=== PATIENT | male | born 1935 | race Caucasian/White ===

== ENCOUNTER 2016-12-18 14:59 | Inpatient (IN) | payer OTHER ==
--- NOTE | ~2016-12-18 | CN ---
Consultation Report [facility] [address] [facility] [place]. [address] NAME: DOT SANCHEZ : 33 STATUS : ADM Radha PAT#: [id number] AGE: 81 ADM/REG DATE : 12/18/16 MR#: [id number] REPORT SERV DATE: 12/19/16 DICTATED BY: WALE WAHL DATE: 12/19/16 REPORT STATUS : Draft TRANSCRIBED BY: MODL DATE: 12/19/16 DATE OF CONSULTATION: HISTORY OF PRESENT ILLNESS: This is an 81-year-old man, whom I am asked to see as an unattached GI consult for severe constipation. Unfortunately, he is suffering from advanced dementia and is unable to give a history. I did phone his , Felicia, who was able to tell me that he has been constipated his entire life and that he had used laxatives his entire life. With his worsening dementia, however, he has been on no bowel regimen at all and has had constipation with periods of liquid stool that sound like overflow. He became severely distended, complaining of pain, constipated, and developed urinary retention. He presented to the emergency room where there was evidence of a lot of stool in the rectum and marked dilation. He was admitted and I was consulted. He has not yet been digitally disimpacted. PAST MEDICAL HISTORY: 1. Advanced dementia. 2. Chronic constipation. 3. CVA in 2012. PAST SURGICAL HISTORY: No abdominal surgery. MEDICATIONS: (On admission), Xalatan eyedrops, Namenda, Remeron, Pravachol, Altace, Exelon. ALLERGIES: NO KNOWN DRUG ALLERGIES. FAMILY HISTORY: No GI malignancy. SOCIAL HISTORY: He is . He and his , Felicia, both ends with two glasses of wine each evening. Her home phone is [phone]. REVIEW OF SYSTEMS: Otherwise unremarkable for constitutional, endocrine, neurologic, psychiatric, ocular, ENT, pulmonary, cardiovascular, GI, , or rheumatologic symptoms except for as noted above. PHYSICAL EXAMINATION: GENERAL: He is very calm and in bed, but not able to give a history. VITAL SIGNS: Afebrile. LUNGS: Clear. ABDOMEN: Actually soft and not distended or tender. EXTREMITIES: No edema. RECTAL: He has a marked fecal impaction. Copious hard stool was disimpacted and removed. The remainder of the stool that could not be digitally removed was broken up and turned into a soft mush to facilitate spontaneous passage. LABORATORY DATA: Potassium 3.5, white count 11.2, hemoglobin 13. Albumin normal. Liver Consultation Report [facility] [address] [address] NAME: DOT SANCHEZ : 33 STATUS : ADM Radha PAT#: [id number] AGE: 81 ADM/REG DATE : 12/18/16 MR#: [id number] REPORT SERV DATE: 12/19/16 DICTATED BY: WALE WAHL DATE: 12/19/16 REPORT STATUS : Draft TRANSCRIBED BY: MODL DATE: 12/19/16 tests normal. Lipase normal. Noncontrast CT scan consistent with rectal fecal impaction with secondary dilation. IMPRESSION: 1. Chronic constipation with exacerbation by dementia and medications for dementia. 2. Acute rectal fecal impaction with overflow. 3. Urinary retention due to fecal impaction, but probably also component of benign prostatic hyperplasia. RECOMMENDATIONS: 1. I have now manually disimpacted him. 2. We will give soapsuds enemas. 3. Start oral magnesium citrate. 4. Repeat manual disimpaction and soapsuds enema in the morning. 5. He will then need a bowel regimen of MiraLAX once to twice daily. 6. Would check a TSH. /MODL Wale Wahl M.D. / [id number] CC: Corie Call M.D.
--- NOTE | ~2016-12-18 | DS ---
Discharge Summary [facility] [address] [place]. [address] NAME: DOT GAMBINO : 31 STATUS : DIS IN PAT#: [id number] AGE: 81 ADM/REG DATE : 12/18/16 MR#: [id number] REPORT SERV DATE: 12/22/16 DICTATED BY: ROSARIO MA DATE: 12/22/16 REPORT STATUS : Draft TRANSCRIBED BY: LYDIA DATE: 12/22/16 ADMISSION DATE: 12/18/2016 DISCHARGE DATE: DIAGNOSES: 1. Severe obstipation requiring disimpaction. 2. Urinary retention secondary to severe obstipation, resolved. 3. Dementia. 4. Hypertension. FOLLOWUP: The patient should follow up with his primary care physician in one to two weeks after rehab. HOSPITALIST: Dr. Miladys Haas. CONSULT: Dr. Wale Wahl, GI. HOSPITAL COURSE: Please see H and P dictated by Dr. Haas. This is an 81-year-old male with a past medical history of a CVA in 2002 as well as advanced dementia, also with intermittent constipation, now presented with severe constipation as well as findings of urinary retention upon arrival to the ER. The patient was seen by Dr. Haas, who initially cared for the patient and consulted GI physician, Dr. Wahl, who disimpacted Mr. Gambino and placed the patient on MiraLAX b.i.d. Also, the patient had a good bowel movement after disimpaction and also after magnesium titrate dosage, he remained afebrile and hemodynamically stable. He did have a CT of the abdomen and pelvis on admission that ruled out any obstructions, the only findings of impaction. The was concerned about the patient returning to home even with home health. States that she needs help with caring for him until the patient restrengthens himself for the next few days or weeks, therefore she requested inpatient rehab. The patient was approved for inpatient rehab at [facility]. He remains clinically and hemodynamically stable. understands that the patient's constipation is most likely secondary to some of his dementia medications and his immobility. The patient was discharged to SNF in stable condition to follow up as an outpatient with his primary care physician. DISCHARGE MEDICATIONS: 1. Norvasc 5 mg p.o. daily. Hold for systolic blood pressure less than 120. 2. Latanoprost ophthalmic drop q.h.s. 3. Magnesium titrate one bottle p.o. x1 only one dose. 4. Remeron 15 mg p.o. q.h.s. 5. Namenda 10 mg p.o. b.i.d. 6. MiraLAX one pack p.o. b.i.d. 7. Pravachol 40 mg p.o. q.h.s. 8. Ramipril 2.5 mg p.o. daily. 9. Exelon 9.5 mg topically patch q.h.s. 10.Flomax 0.4 mg p.o. q.h.s. Discharge Summary [address] [address] NAME: DOT GAMBINO : 33 STATUS : DIS IN PAT#: [id number] AGE: 81 ADM/REG DATE : 12/18/16 MR#: [id number] REPORT SERV DATE: 12/22/16 DICTATED BY: ROSARIO MA DATE: 12/22/16 REPORT STATUS : Draft TRANSCRIBED BY: LYDIA DATE: 12/22/16 DICTATED BY: Rosairo Ma M.D. BANNER/LYDIA Rosario Ma M.D. / [id number] CC: Corie Sagastume M.D.
--- NOTE | ~2016-12-18 | HP ---
History And Physical [place] [id number] [facility] [place]. [address] NAME: DOT SANCHEZ : 33 STATUS : REG ER PAT#: [id number] AGE: 81 ADM/REG DATE : 12/18/16 MR#: [id number] REPORT SERV DATE: 12/18/16 DICTATED BY: CAITLYN SINHA DATE: 12/18/16 REPORT STATUS : Draft TRANSCRIBED BY: MODL DATE: 12/18/16 DATE OF ADMISSION: 12/18/2016 The patient is a very pleasant 81-year-old male who presented to [facility] accompanied with his . The patient has advanced dementia and his noticed that the patient had constipation. In July, she took him to [facility] because of constipation and at that time, he did not have any blockages. His constipation resolved. Recently she noticed that the patient had constipation and then after constipation will get a little bit better, she will develop loose stool, it is not complete diarrhea but he is having 4 to 5 loose stools a day and he did not have complete emptying. His abdomen is swollen although he denies any abdominal pain. He denies any abdominal discomfort. He also had urinary retention, according to Dr. Cartagena, emergency room physician. In the emergency room, Julien catheter was placed and almost 800 mL of urine immediately came out on the Julien catheter. Bladder scan also showed distended urinary bladder as well as the distention on the belly according to the was significant but the patient denied any discomfort although reported that he could not urinate for several days. The patient denies any chest pain, no shortness of breath. No abdominal pain. No fever. No rash. No headaches. The patient does not know what year it is. He does not know that he is at [facility]. He thinks he is in [place] but cannot tell where exactly he is. The patient's reported he has significantly advanced dementia and he is able to walk but with some difficulty with her help. PAST MEDICAL HISTORY: Known for small stroke in 2012, advanced dementia. No diabetes. No heart attacks. No congestive heart failure. His said that he does not have any major surgeries. ALLERGIES: NO KNOWN DRUG ALLERGIES. SOCIAL HISTORY: The patient lives with his and their 50-year-old daughter. The patient does not smoke. He drinks 2 glasses of wine daily according to , they both drink 2 glasses of wine. They denied any recreational drugs. FAMILY HISTORY: Both parents of old age. Mother had diabetes and father of leukemia of old age. HOME MEDICATIONS: Home medications include 1. Xalatan eyedrops at bedtime. 2. Namenda XR 21 mg a day. 3. Remeron 15 mg a day. 4. Pravastatin 40 mg a day. 5. Altace 2.5 mg a day. 6. Exelon patch 9.5 mg topically daily. REVIEW OF SYSTEMS: All 14-point review of systems done and negative except what is stated in the history of present illness. History And Physical [address] [address] NAME: DOT SANCHEZ : 33 STATUS : REG ER PAT#: [id number] AGE: 81 ADM/REG DATE : 12/18/16 MR#: [id number] REPORT SERV DATE: 12/18/16 DICTATED BY: CAITLYN SINHA DATE: 12/18/16 REPORT STATUS : Draft TRANSCRIBED BY: LYDIA DATE: 12/18/16 PHYSICAL EXAMINATION: GENERAL: A well-nourished, well-developed male, not in acute distress. Resting quietly. VITAL SIGNS: Blood pressure 146/68, temperature 98, heart rate 66, respirations 16, and oxygen saturation 97% on room air. HEENT: Head atraumatic, normocephalic. Conjunctivae clear. Pupils are equal and reactive to light and accommodation. Extraocular muscles are intact. NECK: Supple. Trachea is midline. No supraclavicular or cervical lymphadenopathy. LUNGS: Clear to auscultation bilaterally. Normal respiratory effort. CARDIOVASCULAR SYSTEM: Regular rate and rhythm. Point of maximal impulse not displaced. ABDOMEN: Abdomen is soft. Mild distention of the abdomen. No organomegaly. Slightly diminished bowel sounds. EXTREMITIES: No clubbing, cyanosis, or edema. PSYCHIATRIC: Normal mood and affect. NEUROLOGIC: He is awake. He is alert. He is disoriented in time and place, oriented in person. MUSCULOSKELETAL: Muscle strength is 5/5 bilaterally on the upper and lower extremities. LABORATORY RESULTS: Sodium 146, potassium 4.2, chloride 112, carbon dioxide 28, BUN 15, creatinine 1.14, blood sugar 114, ALT 14, AST 13 lipase 117, and bilirubin 0.9. White count 9, hemoglobin 13.4, hematocrit 40.9, and platelet count 97. UA did not show any evidence of urinary infection. CT of the abdomen and pelvis without contrast showed markedly distended rectum approximately 11 cm in diameter and filled with hard stool. Prostate is not severely enlarged. Changes of the pulmonary bases possibly secondary to mild congestive heart failure. Moderate-size hiatal hernia, contains approximately half of the gastric fundus. EKG: EKG showed normal sinus rhythm with a rate of 61. ASSESSMENT AND PLAN: 1. This is an 81-year-old male with advanced dementia, presented with severe constipation, markedly dilated rectum, periodically loose stool, probably from overflow incontinence. 2. Urinary retention likely secondary to BPH. 3. Advanced dementia. 4. Mild prerenal azotemia. PLAN: 1. For his constipation, we will give him laxatives with MiraLAX and Dulcolax suppository and we will monitor him closely. We will put him on gentle IV fluid hydration. We will check his TSH. Also I will consult Gastroenterology office correspondent for possible obstruction. 2. Urinary retention, likely enlarged prostate. We will put the patient on Flomax. Julien catheter was already placed in the emergency room. 3. Advanced Alzheimer's dementia. We will put the patient on fall precautions and aspiration precautions. 4. Also thrombocytopenia noticed of platelet count of 97,000. I noticed that this is History And Physical [address] [address] NAME: DOT SANCHEZ : 33 STATUS : REG ER PAT#: [id number] AGE: 81 ADM/REG DATE : 12/18/16 MR#: [id number] REPORT SERV DATE: 12/18/16 DICTATED BY: CAITLYN SINHA DATE: 12/18/16 REPORT STATUS : Draft TRANSCRIBED BY: MODL DATE: 12/18/16 chronic in nature. On 12/05/2015, a year ago, it was 99,000. We will monitor it closely. We will hold will hold pharmacologic DVT prophylaxis because of the thrombocytopenia. Everything was discussed with the patient and his . MG/MODL Caitlyn Sinha M.D. / [id number] CC: Shahid Davison M.D.
[2016-12-18 13:19] LABS: BASOPHILS 0.4 %; BASOPHILS ABSOLUTE 0.04 10/3/uL (0.0-0.16); EOSINOPHILS 3.1 %; EOSINOPHILS ABSOLUTE 0.28 10/3/uL (0.0-0.53); HEMATOCRIT 40.9 % (40.0-51.0); HEMOGLOBIN 13.4 g/dL (13.6-17.8); IMMATURE GRANULOCYTES 0.2 %; IMMATURE GRANULOCYTES ABSOLUTE 0.02 10/3/uL (0.0-0.11); LYMPHOCYTES 21.2 %; MEAN CORPUS HGB CONC 32.8 g/dL (32.0-36.0); MEAN CORPUSCULAR HEMOGLOB 30.7 pg (26.0-34.0); MEAN CORPUSCULAR VOLUME 93.8 fL (80-100); MONOCYTES 7.9 %; MONOCYTES ABSOLUTE 0.71 10/3/uL (0.21-1.20); NEUTROPHILS 67.2 %; NEUTROPHILS ABSOLUTE 6.02 10/3/uL (2.02-8.40); PLATELET COUNT 97 10/3/uL (150-400); RBC DISTRIBUTION WIDTH 14.2 % (12.0-16.0); RED CELL COUNT 4.36 10/6/uL (4.7-6.1)
[2016-12-18 13:21] LABS: MANUAL DIFF NO %
[2016-12-18 13:33] LABS: A/G RATIO 0.9 (0.7-1.9); ALBUMIN 3.6 G/DL (3.5-5.0); ALKALINE PHOSPHATASE 79 U/L (45-117); BUN (BLOOD UREA NITROGEN) 15 MG/DL (6-23); CALCIUM, SERUM 8.9 MG/DL (8.5-10.4); CHLORIDE, SERUM 112 MMOL/L (96-112); CO2 (CARBON DIOXIDE) 28 MMOL/L (24-34); CREATININE 1.14 MG/DL (0.70-1.30); GFR AFRICAN AMERICAN 69 ML/MIN (>=60); GFR NON AFRICAN AMERICAN 59 ML/MIN (>=60); GLOBULIN 3.8 G/DL (2.5-4.1); GLUCOSE, SERUM 114 MG/DL (60-99); POTASSIUM, SERUM 4.2 MMOL/L (3.5-5.3); SGOT(AST) 13 U/L (5-40); SGPT(ALT) 14 U/L (5-65); SODIUM, SERUM 146 MMOL/L (135-148); TOTAL BILIRUBIN 0.9 MG/DL (0-1.2); TOTAL PROTEIN 7.4 G/DL (6.0-8.5)
[2016-12-18 13:44] LABS: BAND NEUTROPHILS 3 %; EOSINOPHILS 3 %; EOSINOPHILS ABSOLUTE (CALC) 0.27 10/3/uL (0.0-0.53); ER DIFF TAT 0 Hrs 31 Mins; LYMPHOCYTES 28 %; LYMPHOCYTES ABSOLUTE (CALC) 2.52 10/3/uL (0.67-4.30); MONOCYTES 8 %; MONOCYTES ABSOLUTE (CALC) 0.72 10/3/uL (0.21-1.20); NEUTROPHILS ABSOLUTE (CALC) 5.49 10/3/uL (2.02-8.40); PLATELET ESTIMATE DEC (ADEQUATE); RBC MORPHOLOGY NORM (NORMAL); SEGMENTED NEUTROPHIL (0) 58 %; TOTAL NUCLEATED CELLS 100
[2016-12-18 14:21] LABS: WBC (NOT ORDERED) (RFLEX) 0 (0-5)
[2016-12-18 14:28] LABS: ASCORBIC ACID (UR NOT ORDER) NEG (NEG); BILIRUBIN, URINE NEGATIVE (NEG); ER URINALYSIS TAT 0 Hrs 08 Mins; KETONE, URINE NEGATIVE (NEG); LEUKOCYTE ESTERASE(NOT OR NEG (NEG); NITRITE (URINE) NEG (NEG)
[~2016-12-18 14:59] MED LIST: ALTA5 PO; ASA5GR PO; FISH-EPA1000 MG PO; LIPITOR40 PO; MANGANESE PO; VITAMIN C COMPLEX; VITAMIN D31000 UNIT PO
[2016-12-18] MEDS ORDERED: EXELON9.5T TOP (15:30)
[2016-12-18] MEDS ORDERED: ALTA2.5 PO (15:31)
[2016-12-18] MEDS ORDERED: NAMENXR21 PO (15:31)
[2016-12-18] MEDS ORDERED: REM15 PO (15:32)
[2016-12-18] MEDS ORDERED: PRAVACHOL40 MG PO (15:32)
[2016-12-18] MEDS ORDERED: XALAT OPH (15:33)
[2016-12-18 20:17] LABS: FOLATE 10.2 NG/ML (>5.2)
[2016-12-19 04:30] LABS: BASOPHILS 0.3 %; BASOPHILS ABSOLUTE 0.03 10/3/uL (0.0-0.16); EOSINOPHILS 2.8 %; EOSINOPHILS ABSOLUTE 0.31 10/3/uL (0.0-0.53); HEMATOCRIT 38.9 % (40.0-51.0); IMMATURE GRANULOCYTES 0.3 %; IMMATURE GRANULOCYTES ABSOLUTE 0.03 10/3/uL (0.0-0.11); LYMPHOCYTES 16.6 %; LYMPHOCYTES ABSOLUTE 1.86 10/3/uL (0.67-4.30); MEAN CORPUS HGB CONC 33.4 g/dL (32.0-36.0); MEAN CORPUSCULAR HEMOGLOB 31.1 pg (26.0-34.0); MEAN CORPUSCULAR VOLUME 93.1 fL (80-100); MONOCYTES 8.5 %; MONOCYTES ABSOLUTE 0.96 10/3/uL (0.21-1.20); NEUTROPHILS 71.5 %; NEUTROPHILS ABSOLUTE 8.04 10/3/uL (2.02-8.40); PLATELET COUNT 91 10/3/uL (150-400); RBC DISTRIBUTION WIDTH 14.2 % (12.0-16.0); RED CELL COUNT 4.18 10/6/uL (4.7-6.1); WHITE BLOOD CELLS 11.2 10/3/uL (4.5-10.5)
[2016-12-19 04:31] LABS: MANUAL DIFF NO %
[2016-12-19 04:46] LABS: BUN (BLOOD UREA NITROGEN) 18 MG/DL (6-23); CALCIUM, SERUM 8.7 MG/DL (8.5-10.4); CHLORIDE, SERUM 109 MMOL/L (96-112); CO2 (CARBON DIOXIDE) 26 MMOL/L (24-34); CREATININE 1.12 MG/DL (0.70-1.30); GFR AFRICAN AMERICAN 70 ML/MIN (>=60); GFR NON AFRICAN AMERICAN 60 ML/MIN (>=60); GLUCOSE, SERUM 103 MG/DL (60-99); POTASSIUM, SERUM 3.5 MMOL/L (3.5-5.3); SODIUM, SERUM 142 MMOL/L (135-148)
[2016-12-19 05:04] LABS: PLATELET ESTIMATE DEC (ADEQUATE); RBC MORPHOLOGY NORM (NORMAL)
[2016-12-20 06:22] LABS: CALCIUM, SERUM 9.2 MG/DL (8.5-10.4); CHLORIDE, SERUM 111 MMOL/L (96-112); CO2 (CARBON DIOXIDE) 26 MMOL/L (24-34); CREATININE 1.03 MG/DL (0.70-1.30); GFR AFRICAN AMERICAN 77 ML/MIN (>=60); GFR NON AFRICAN AMERICAN 67 ML/MIN (>=60); POTASSIUM, SERUM 4.1 MMOL/L (3.5-5.3); SODIUM, SERUM 141 MMOL/L (135-148)
[2016-12-20 06:23] LABS: BUN (BLOOD UREA NITROGEN) 12 MG/DL (6-23); GLUCOSE, SERUM 132 MG/DL (60-99)
[2016-12-21 07:10] LABS: BUN (BLOOD UREA NITROGEN) 14 MG/DL (6-23); CALCIUM, SERUM 9.1 MG/DL (8.5-10.4); CHLORIDE, SERUM 109 MMOL/L (96-112); CO2 (CARBON DIOXIDE) 27 MMOL/L (24-34); CREATININE 0.97 MG/DL (0.70-1.30); GFR AFRICAN AMERICAN 83 ML/MIN (>=60); GFR NON AFRICAN AMERICAN 72 ML/MIN (>=60); GLUCOSE, SERUM 125 MG/DL (60-99); POTASSIUM, SERUM 3.9 MMOL/L (3.5-5.3); SODIUM, SERUM 142 MMOL/L (135-148)
== END 2016-12-22 17:57 | DRG 389 ==
LOC: ER 14:59 → CDU1 17:10 → CDU2 18:18 → 7NO 12-20 13:20
PROVIDERS: Hospitalist
DX: K56.41 Fecal impaction (principal); K59.39 Other megacolon; D69.6 Thrombocytopenia, unspecified; G30.9 Alzheimer's disease, unspecified; F02.80 Dementia in other diseases classified elsewhere, unspecified severity, without behavioral disturbance, psychotic disturbance, mood disturbance, and anxiety; N40.1 Benign prostatic hyperplasia with lower urinary tract symptoms; R33.8 Other retention of urine; Z86.73 Personal history of transient ischemic attack (TIA), and cerebral infarction without residual deficits
CPT/HCPCS: 71010; 74176; 80048; 80053; 81001; 82607; 82746; 83690; 83735; 84443; 85025; 93005; 97161-GP; 99285; A9270-GY; J0360